=== PATIENT | male | born 1955 | race Caucasian/White ===

== ENCOUNTER → 2020-06-08 | Outpatient (CLI) | payer MEDICARE ==
[~2020-06-08] MED LIST: ATORVASTATIN CA20 MG PO; CIPROFLOXACIN500 M1 PO; DIABETA 2.5 MG2.5 MG PO; ECOTRIN81 MG PO; HUMALOG 10100 UNITS/ SC; LANTUS INS100 UTS/M1 SC; METFORMIN HCL500 MG PO
== END ==
LOC: KOH-I 09:35
DX: S91.302A Unspecified open wound, left foot, initial encounter (principal); M86.8X7 Other osteomyelitis, ankle and foot; M79.89 Other specified soft tissue disorders; M89.8X7 Other specified disorders of bone, ankle and foot; X58.XXXA Exposure to other specified factors, initial encounter
CPT/HCPCS: 73630; 73650; 73718

== ENCOUNTER 2020-08-09 16:56 | Inpatient (IN) | payer MEDICARE ==
[~2020-08-09] VITALS: Ht 182.9 cm; Wt 73.5 kg
[2020-08-09] MEDS ORDERED: METFORMIN HCL500 MG PO (19:55)
[2020-08-09] MEDS ORDERED: CIPROFLOXACIN500 M1 PO (19:56)
[2020-08-09 22:37] LABS: HEMOGLOBIN 11.5 gm/dl (14.0-17.5); RED BLOOD COUNT 4.12 M/UL (4.20-5.50); WHITE BLOOD COUNT 14.3 K/UL (4.5-11.0)
[2020-08-09 22:59] LABS: BUN/CREATININE RATIO 18 (0-10)
[2020-08-10 04:03] LABS: BUN/CREATININE RATIO 18 (0-10)
[2020-08-11 04:39] LABS: BUN/CREATININE RATIO 16 (0-10)
--- NOTE | 2020-08-11 16:10 | NUR ---
PATIENT NOTED TO HAVE A RUN OF SVT WITH A RATE IN THE 150'S-160'S. PROVIDER MADE AWARE. NO NEW ORDERS GIVEN.
[2020-08-12 05:20] LABS: BUN/CREATININE RATIO 12 (0-10)
--- NOTE | 2020-08-12 12:28 | NUR ---
PATIENT STATES THAT HE DOES NOT WANT TO STAY IN THE HOSPITAL ANY LONGER. PATIENT STATES THAT HE WILL FIND ANOTHER DOCTOR.PATIENT STATES THAT HE WANTS TO SIGN OUT AGAINST MEDICAL ADVICE. PATIENT STATES THAT HIS FOOT HAS BEEN THIS WAY FOR A LONG TIME AND IT WILL GET BETTER AT HOME. PATIENT WAS GIVEN AN EXPLANATION OF BENEFITS OF STAYING AND LEAVING AND PATIENT WAS GIVEN EXPLANATION THAT LEAVING WITHOUT TREATMENT COULD RESULT IN LOSS OF HIS LIMB OR . PATIENT STATES "I DO NOT CARE AT ALL. I AM LEAVING SOON MY BROTHER GETS HERE TO PICK ME UP.". PATIENT VERBALIZED UNDERSTANDING EXPLAING BY MYSELF AND THE PROVIDER.
[2020-08-12 16:27] LABS: RED BLOOD COUNT 4.22 M/UL (4.20-5.50); WHITE BLOOD COUNT 11.2 K/UL (4.5-11.0)
[2020-08-12 16:46] LABS: BUN/CREATININE RATIO 8 (0-10)
[2020-08-13 04:52] LABS: HEMOGLOBIN 11.2 gm/dl (14.0-17.5); RED BLOOD COUNT 3.98 M/UL (4.20-5.50); WHITE BLOOD COUNT 9.4 K/UL (4.5-11.0)
[2020-08-13 05:08] LABS: BUN/CREATININE RATIO 14 (0-10)
--- NOTE | 2020-08-13 16:59 | NUR ---
PATIENT HAS REFUSED TO WEAR HIS TELEMETRY, EVEN AFTER SEVERAL ATTEMPTS BY [facility] AND NURSES TO GET HIM TO WEAR IT. PROVIDER HAS BEEN NOTIFIED AND GIVEN ORDER BY PHONE WITH READ BACK TO DC TELEMETRY.
[2020-08-14 04:29] LABS: HEMOGLOBIN 10.3 gm/dl (14.0-17.5); RED BLOOD COUNT 3.68 M/UL (4.20-5.50); WHITE BLOOD COUNT 8.1 K/UL (4.5-11.0)
[2020-08-14 04:52] LABS: BUN/CREATININE RATIO 14 (0-10)
[2020-08-15 08:39] LABS: RED BLOOD COUNT 3.98 M/UL (4.20-5.50); WHITE BLOOD COUNT 7.2 K/UL (4.5-11.0)
[2020-08-15 09:02] LABS: BUN/CREATININE RATIO 17 (0-10)
--- NOTE | 2020-08-15 13:46 | NUR ---
PATIENT LEAVING FLOOR FOR SURGERY
--- NOTE | 2020-08-15 17:10 | NUR ---
PATIENT RETURNED TO FLOOR FROM SURGERY.
[2020-08-16 04:27] LABS: HEMOGLOBIN 11.2 gm/dl (14.0-17.5); RED BLOOD COUNT 3.98 M/UL (4.20-5.50); WHITE BLOOD COUNT 7.7 K/UL (4.5-11.0)
[2020-08-16 04:44] LABS: BUN/CREATININE RATIO 18 (0-10)
[2020-08-17 06:06] LABS: HEMOGLOBIN 11.2 gm/dl (14.0-17.5); RED BLOOD COUNT 4.05 M/UL (4.20-5.50)
[2020-08-17 06:35] LABS: BUN/CREATININE RATIO 18 (0-10)
[2020-08-18 05:42] LABS: HEMOGLOBIN 11.1 gm/dl (14.0-17.5); RED BLOOD COUNT 4.11 M/UL (4.20-5.50); WHITE BLOOD COUNT 8.3 K/UL (4.5-11.0)
[2020-08-18 05:46] LABS: BUN/CREATININE RATIO 18 (0-10)
[2020-08-19 03:37] LABS: HEMOGLOBIN 11.4 gm/dl (14.0-17.5); RED BLOOD COUNT 4.1 M/UL (4.20-5.50); WHITE BLOOD COUNT 8.4 K/UL (4.5-11.0)
[2020-08-19 04:06] LABS: BUN/CREATININE RATIO 16 (0-10)
[2020-08-20 06:34] LABS: HEMOGLOBIN 11.2 gm/dl (14.0-17.5); RED BLOOD COUNT 3.99 M/UL (4.20-5.50)
[2020-08-20 07:06] LABS: BUN/CREATININE RATIO 19 (0-10)
[2020-08-21 03:14] LABS: RED BLOOD COUNT 3.9 M/UL (4.20-5.50); WHITE BLOOD COUNT 10.3 K/UL (4.5-11.0)
[2020-08-21 03:28] LABS: BUN/CREATININE RATIO 25 (0-10)
[2020-08-22 06:12] LABS: HEMOGLOBIN 11.5 gm/dl (14.0-17.5); RED BLOOD COUNT 4.09 M/UL (4.20-5.50)
[2020-08-22 06:43] LABS: BUN/CREATININE RATIO 23 (0-10)
[2020-08-23 03:00] LABS: HEMOGLOBIN 10.8 gm/dl (14.0-17.5); RED BLOOD COUNT 3.89 M/UL (4.20-5.50); WHITE BLOOD COUNT 8.6 K/UL (4.5-11.0)
[2020-08-23 03:21] LABS: BUN/CREATININE RATIO 24 (0-10)
[2020-08-24] MEDS ORDERED: LANTUS INS100 UTS/M1 SC (10:20)
[2020-08-24] MEDS ORDERED: ATORVASTATIN CA20 MG PO (10:20)
[2020-08-24] MEDS ORDERED: HUMALOG 10100 UNITS/ SC (10:20)
[2020-08-24] MEDS ORDERED: ECOTRIN81 MG PO (10:21)
[2020-08-24] MEDS ORDERED: DIABETA 2.5 MG2.5 MG PO (10:21)
--- NOTE | 2020-08-24 14:56 | NUR ---
LEFT PER EMS TO [facility] REPORT CALLED TO [facility] NOTED
== END 2020-08-24 14:38 | DRG 853 ==
LOC: MED SURG 4 18:48
PROVIDERS: Internal Medicine; Surgery; ADMIT Internal Medicine
PROC: 8E0ZXY6 Isolation (ICD-10-PCS; principal; 2020-08-09)
PROC: 0Y6J0Z1 Detachment at Left Lower Leg, High, Open Approach (ICD-10-PCS; 2020-08-15)
DX: A41.02 Sepsis due to Methicillin resistant Staphylococcus aureus (principal); L89.894 Pressure ulcer of other site, stage 4; U07.1 COVID-19; E11.52 Type 2 diabetes mellitus with diabetic peripheral angiopathy with gangrene; I96 Gangrene, not elsewhere classified; M86.672 Other chronic osteomyelitis, left ankle and foot; E44.0 Moderate protein-calorie malnutrition; E87.1 Hypo-osmolality and hyponatremia; M84.675A Pathological fracture in other disease, left foot, initial encounter for fracture; L03.116 Cellulitis of left lower limb; E11.69 Type 2 diabetes mellitus with other specified complication; J44.9 Chronic obstructive pulmonary disease, unspecified; K75.81 Nonalcoholic steatohepatitis (NASH); B18.2 Chronic viral hepatitis C; I10 Essential (primary) hypertension; F17.210 Nicotine dependence, cigarettes, uncomplicated; Z68.21 Body mass index [BMI] 21.0-21.9, adult; D64.9 Anemia, unspecified; Z83.3 Family history of diabetes mellitus; Z82.49 Family history of ischemic heart disease and other diseases of the circulatory system; Z66 Do not resuscitate; L89.150 Pressure ulcer of sacral region, unstageable; L89.322 Pressure ulcer of left buttock, stage 2; L89.611 Pressure ulcer of right heel, stage 1; E86.1 Hypovolemia; E11.40 Type 2 diabetes mellitus with diabetic neuropathy, unspecified; E87.6 Hypokalemia
CPT/HCPCS: 36415; 71045; 73718; 80048; 80053; 80202; 82550; 82553; 82607; 82652; 82728; 82746; 82962; 83615; 83735; 83880; 84439; 84443; 84484; 85007; 85025; 85027; 85379; 86140; 86850; 86900; 86901; 87040; 87070; 87077; 87186; 87205; 93005; 97110; 97110-GP-CQ; 97116-GP-CQ; 97162; 97166; 97530; A6212; C9113; J0171; J1100; J1170; J1650; J1885; J2001; J2270; J2405; J2543; J2704; J2795; J2930; J3370; J7040; J7050; J7070; J7120; U0002